=== PATIENT | male | born 1980 | race Caucasian/White ===

== ENCOUNTER → 2021-01-14 | Outpatient (CLI) | payer BC, OTHER ==
[~2021-01-14] MED LIST: CYCLOBENZAPRINE10 MG PO
[2021-01-15 08:13] LABS: VITAMIN D, 25-HYDROXY 30.3 ng/mL (30.0-100.0)
[2021-01-15 11:13] LABS: RHEUMATOID ARTHRITIS FACTOR <10.0 IU/mL (0.0-13.9)
[2021-01-15 14:13] LABS: ALDOLASE 4.7 U/L (3.3-10.3)
[2021-01-15 16:13] LABS: ENDOMYSIAL ANTIBODY IGA Negative (Negative); IMMUNOGLOBULIN A, QN, SERUM 381 mg/dL (90-386); T-TRANSGLUTAMINASE (TTG) IGA <2 U/mL (0-3); T-TRANSGLUTAMINASE (TTG) IGG <2 U/mL (0-5)
== END ==
LOC: LAB 13:54
PROVIDERS: Internal Medicine
DX: M25.50 Pain in unspecified joint (principal); R53.83 Other fatigue; E55.9 Vitamin D deficiency, unspecified; E53.8 Deficiency of other specified B group vitamins
CPT/HCPCS: 36415; 81374; 82085; 82550; 82728; 82784; 83520; 83735; 84439; 84443; 84550; 85652; 86140; 86200; 86431